=== PATIENT | male | born 1940 | race Caucasian/White ===

== ENCOUNTER 2018-02-04 15:17 | Inpatient (IN) | payer MEDICARE, OTHER ==
[~2018-02-04] VITALS: Ht 188 cm; Wt 100.9 kg
[2018-02-04] MEDS ORDERED: HYDROmorphone inj. 0.5 MG/0.5 ML DISP.SYRIN IV ONE ×2 (15:45→18:10)
[2018-02-04] MEDS ORDERED: HYDROmorphone 1 mg/ml syringe IV ONE ×2 (15:50→18:10)
[2018-02-04] MEDS ORDERED: HYDROmorphone/NS 1 mg/ml CADD 50 ML IV SCH (16:30)
[2018-02-04] MEDS ORDERED: acetaminophen 325mg tablet PO PRN (16:30)
[2018-02-04] MEDS ORDERED: CADD PCA waste documentation MC PRN (16:30)
[2018-02-04] MEDS ORDERED: naloxone 0.4 mg/ml inj IV PRN (16:30)
[2018-02-04] MEDS ORDERED: ondansetron/PF 4mg/2ml inj IV PRN (17:20)
[2018-02-04 17:29] LABS: BASOPHILS % (AUTO) 0.2 % (0-1); EOSINOPHILS # (AUTO) 0.2 X10'3 (0-0.9); EOSINOPHILS % (AUTO) 2.2 % (0-6); HEMATOCRIT 30.8 % (42.0-52.0); HEMOGLOBIN 10.5 g/dl (14.0-17.9); LYMPHOCYTES # (AUTO) 0.4 X10'3 (1.1-4.8); LYMPHOCYTES % (AUTO) 5.4 % (21-51); MEAN CORPUSCULAR HEMOGLOBIN 33.2 PG (27.0-31.0); MEAN CORPUSCULAR VOLUME 97.6 FL (78-98); MEAN PLATELET VOLUME 6.9 FL (7.4-10.4); MONOCYTES # (AUTO) 0.8 X10'3 (0-0.9); MONOCYTES % (AUTO) 10.8 % (2-12); NEUTROPHILS # (AUTO) 5.9 X10'3 (1.8-7.7); NEUTROPHILS % (AUTO) 81.4 % (42-75); PLATELET COUNT 129 X10'3 (140-440); RED BLOOD COUNT 3.15 X10'6 (4.70-6.10); RED CELL DISTRIBUTION WIDTH 15.8 % (11.5-14.5); WHITE BLOOD COUNT 7.3 X10'3 (4.5-11.0)
[2018-02-04 17:38] LABS: INR 1.1 INR; PARTIAL THROMBOPLASTIN TIME 28 SECONDS (22-32); PROTHROMBIN TIME 11.2 SECONDS (9.0-12.0)
[2018-02-04 17:41] LABS: ALANINE AMINOTRANSFERASE 30 U/L (12-78); ALBUMIN 3.2 G/DL (3.4-5.0); ALBUMIN/GLOBULIN RATIO 0.7 (1.1-1.5); ALKALINE PHOSPHATASE 113 IU/L (46-116); ANION GAP 10 (8-16); ASPARTATE AMINO TRANSFERASE 25 U/L (10-37); BILIRUBIN,TOTAL 0.8 MG/DL (0.1-1.0); BLOOD UREA NITROGEN 58 MG/DL (7-18); BUN/CREATININE RATIO 7.8 (5.4-32.0); CALCIUM 8.7 MG/DL (8.5-10.1); CHLORIDE 102 MMOL/L (99-107); CREATININE 7.45 MG/DL (0.60-1.10); GLUCOSE 94 MG/DL (70-104); MAGNESIUM 2.7 MG/DL (1.5-2.4); PHOSPHORUS 5.1 MG/DL (2.3-4.5); POTASSIUM 5.4 MMOL/L (3.5-5.1); SODIUM 139 MMOL/L (135-145); TOTAL CARBON DIOXIDE 27.2 MMOL/L (24-32); TOTAL PROTEIN 7.5 G/DL (6.4-8.2); eGFR 7 ML/MIN
[2018-02-04 18:47] VITALS: BP 162/81
[2018-02-04] MEDS: HYDROmorphone/NS 1 mg/ml CADD 50 ML IV SCH ×4 (19:00→23:00)
[2018-02-04] MEDS: baclofen 10mg tablet PO PRN (19:46)
[2018-02-04] MEDS: docusate sod 100mg capsule PO SCH (19:47)
[2018-02-04] MEDS ORDERED: FURO-149 PO (20:13)
[2018-02-04] MEDS ORDERED: FOLI0.8T7 PO (20:13)
[2018-02-04] MEDS ORDERED: PHO667C PO (20:13)
[2018-02-04] MEDS ORDERED: AMLO1CAP19 PO (20:13)
[2018-02-04] MEDS ORDERED: HYDR-565 PO (20:13)
[2018-02-04] MEDS ORDERED: furosemide 40mg tablet PO ONE (20:20)
[2018-02-04] MEDS ORDERED: heparin 1,000 units/ml 10ml inj IV ONE (20:25)
[2018-02-04] MEDS ORDERED: normal saline 1000ml 250 ML IV PRN (20:25)
[2018-02-04] MEDS ORDERED: LIDOcaine 1% (10mg/ml) 2ml vial SQ ONE (20:25)
[2018-02-04] MEDS ORDERED: epoetin 20,000 units/ml inj IV ONE (20:25)
[2018-02-04 22:00] VITALS: BP 150/74
[2018-02-05] VITALS (20 sets, daily range): BP systolic 97–150; BP diastolic 51–82
[2018-02-05] MEDS: HYDROmorphone/NS 1 mg/ml CADD 50 ML IV SCH ×7 (00:57→13:00)
[2018-02-05 07:08] LABS: BASOPHILS % (AUTO) 0.4 % (0-1); EOSINOPHILS # (AUTO) 0.3 X10'3 (0-0.9); EOSINOPHILS % (AUTO) 4.6 % (0-6); HEMATOCRIT 29.2 % (42.0-52.0); LYMPHOCYTES # (AUTO) 0.5 X10'3 (1.1-4.8); LYMPHOCYTES % (AUTO) 8.2 % (21-51); MEAN CORPUSCULAR HEMOGLOBIN 33.2 PG (27.0-31.0); MEAN CORPUSCULAR HGB CONC 34.2 % (33.0-36.5); MEAN CORPUSCULAR VOLUME 97.2 FL (78-98); MEAN PLATELET VOLUME 6.4 FL (7.4-10.4); MONOCYTES # (AUTO) 0.8 X10'3 (0-0.9); MONOCYTES % (AUTO) 13.4 % (2-12); NEUTROPHILS # (AUTO) 4.2 X10'3 (1.8-7.7); NEUTROPHILS % (AUTO) 73.4 % (42-75); PLATELET COUNT 126 X10'3 (140-440); RED BLOOD COUNT 3.01 X10'6 (4.70-6.10); RED CELL DISTRIBUTION WIDTH 16.1 % (11.5-14.5); WHITE BLOOD COUNT 5.7 X10'3 (4.5-11.0)
[2018-02-05] MEDS: docusate sod 100mg capsule PO SCH (07:14)
[2018-02-05] MEDS: sevelamer carbonate 800mg tablet PO SCH ×3 (07:14→17:24)
[2018-02-05 07:29] LABS: ALANINE AMINOTRANSFERASE 26 U/L (12-78); ALBUMIN/GLOBULIN RATIO 0.7 (1.1-1.5); ALKALINE PHOSPHATASE 108 IU/L (46-116); ANION GAP 8 (8-16); ASPARTATE AMINO TRANSFERASE 16 U/L (10-37); BLOOD UREA NITROGEN 31 MG/DL (7-18); BUN/CREATININE RATIO 6.1 (5.4-32.0); CALCIUM 8.4 MG/DL (8.5-10.1); CHLORIDE 101 MMOL/L (99-107); CREATININE 5.09 MG/DL (0.60-1.10); GLUCOSE 96 MG/DL (70-104); MAGNESIUM 2.4 MG/DL (1.5-2.4); PHOSPHORUS 4.4 MG/DL (2.3-4.5); POTASSIUM 4.6 MMOL/L (3.5-5.1); SODIUM 138 MMOL/L (135-145); TOTAL CARBON DIOXIDE 28.8 MMOL/L (24-32); TOTAL PROTEIN 7.2 G/DL (6.4-8.2); eGFR 11 ML/MIN
[2018-02-05] MEDS ORDERED: fentaNYL/PF 50MCG/1 ML 2ML syringe ONE (08:16)
[2018-02-05] MEDS ORDERED: midazolam 2 mg/2 ml injection ONE (08:17)
[2018-02-05 08:29] LABS: INR 1.1 INR; PROTHROMBIN TIME 11.4 SECONDS (9.0-12.0)
[2018-02-05] MEDS ORDERED: proCHLORperazine 10 MG/2 ml inj IV PRN (09:15)
[2018-02-05] MEDS ORDERED: meperidine/PF 25mg/ml syringe IV PRN ×3 (09:15)
[2018-02-05] MEDS ORDERED: morphine 4 MG/ML inj SYRINge IV PRN ×2 (09:15)
[2018-02-05] MEDS ORDERED: ringers solution, lacted 1,000 ML IV SCH ×2 (09:15)
[2018-02-05] MEDS ORDERED: ondansetron/PF 4mg/2ml inj IV PRN (09:15)
[2018-02-05] MEDS ORDERED: propofol inj 20 ML IV ONE (09:54)
[2018-02-05] MEDS ORDERED: acetaminophen 325mg tablet PO PRN (10:05)
[2018-02-05] MEDS ORDERED: diphenhydrAMINE 25mg capsule PO PRN ×2 (10:05)
[2018-02-05] MEDS ORDERED: magnesium hydroxide 30ml (MOM) UD suspension PO PRN (10:05)
[2018-02-05] MEDS ORDERED: bisacodyl 10mg suppository rectal RC PRN (10:05)
[2018-02-05] MEDS ORDERED: morphine 2 MG/ML inj. syringe IV PRN (13:40)
[2018-02-05] MEDS: HYDROcodone/acetaminophen 10/325mg tab PO PRN ×3 (13:52→22:14)
[2018-02-05] MEDS: ceFAZolin 1GM/D5W- ADD-VANTAGE 50 ML IV SCH ×2 (15:39→23:41)
[2018-02-05] MEDS: calcium acetate 667mg (PhosLO) capsule PO SCH (17:24)
[2018-02-05] MEDS: furosemide 40mg tablet PO SCH (20:47)
[2018-02-05] MEDS: baclofen 10mg tablet PO PRN (20:50)
[2018-02-05] MEDS: sennosides 8.6mg tablet PO SCH (21:00)
[2018-02-06] VITALS (7 sets, daily range): BP systolic 115–160; BP diastolic 55–80
[2018-02-06] MEDS: HYDROcodone/acetaminophen 10/325mg tab PO PRN ×4 (03:45→20:30)
[2018-02-06] MEDS: baclofen 10mg tablet PO PRN ×2 (04:59→12:43)
[2018-02-06 05:27] LABS: INR 1.1 INR; PROTHROMBIN TIME 11.7 SECONDS (9.0-12.0)
[2018-02-06 05:36] LABS: ALANINE AMINOTRANSFERASE 21 U/L (12-78); ALBUMIN 2.8 G/DL (3.4-5.0); ALBUMIN/GLOBULIN RATIO 0.7 (1.1-1.5); ALKALINE PHOSPHATASE 92 IU/L (46-116); ANION GAP 7 (8-16); ASPARTATE AMINO TRANSFERASE 17 U/L (10-37); BILIRUBIN,TOTAL 0.7 MG/DL (0.1-1.0); BLOOD UREA NITROGEN 48 MG/DL (7-18); CALCIUM 7.8 MG/DL (8.5-10.1); CHLORIDE 99 MMOL/L (99-107); CREATININE 6.83 MG/DL (0.60-1.10); GLUCOSE 100 MG/DL (70-104); MAGNESIUM 2.5 MG/DL (1.5-2.4); POTASSIUM 5.2 MMOL/L (3.5-5.1); SODIUM 135 MMOL/L (135-145); TOTAL CARBON DIOXIDE 28.6 MMOL/L (24-32); TOTAL PROTEIN 6.8 G/DL (6.4-8.2); eGFR 8 ML/MIN
[2018-02-06 05:37] LABS: BASOPHILS % (AUTO) 0.5 % (0-1); EOSINOPHILS # (AUTO) 0.5 X10'3 (0-0.9); EOSINOPHILS % (AUTO) 7.2 % (0-6); HEMATOCRIT 26.2 % (42.0-52.0); LYMPHOCYTES # (AUTO) 0.6 X10'3 (1.1-4.8); MEAN CORPUSCULAR HEMOGLOBIN 33.2 PG (27.0-31.0); MEAN CORPUSCULAR HGB CONC 34.2 % (33.0-36.5); MEAN PLATELET VOLUME 6.9 FL (7.4-10.4); MONOCYTES # (AUTO) 1.1 X10'3 (0-0.9); MONOCYTES % (AUTO) 15.6 % (2-12); NEUTROPHILS # (AUTO) 4.7 X10'3 (1.8-7.7); NEUTROPHILS % (AUTO) 67.7 % (42-75); PLATELET COUNT 121 X10'3 (140-440); RED CELL DISTRIBUTION WIDTH 15.8 % (11.5-14.5); WHITE BLOOD COUNT 6.9 X10'3 (4.5-11.0)
[2018-02-06] MEDS: folic acid/vitamin B complex w/vitamin C 0.8mg tablet PO SCH (07:41)
[2018-02-06] MEDS: furosemide 40mg tablet PO SCH ×3 (07:41→20:30)
[2018-02-06] MEDS: calcium acetate 667mg (PhosLO) capsule PO SCH ×3 (07:41→17:05)
[2018-02-06] MEDS: lisinopril 10 MG tablet PO SCH (07:42)
[2018-02-06] MEDS: amLODIPine 2.5mg tablet PO SCH (07:42)
[2018-02-06] MEDS: sevelamer carbonate 800mg tablet PO SCH ×3 (07:47→17:05)
[2018-02-06] MEDS ORDERED: enoxaparin 40mg/0.4ml syringe SQ SCH (08:00)
[2018-02-06] MEDS: sennosides 8.6mg tablet PO SCH (20:30)
[2018-02-07] VITALS (7 sets, daily range): BP systolic 126–156; BP diastolic 67–102
[2018-02-07 04:52] LABS: BASOPHILS % (AUTO) 0.1 % (0-1); EOSINOPHILS # (AUTO) 0.6 X10'3 (0-0.9); EOSINOPHILS % (AUTO) 6.9 % (0-6); HEMATOCRIT 26.7 % (42.0-52.0); HEMOGLOBIN 9.1 g/dl (14.0-17.9); LYMPHOCYTES # (AUTO) 0.6 X10'3 (1.1-4.8); LYMPHOCYTES % (AUTO) 7.2 % (21-51); MEAN CORPUSCULAR HGB CONC 33.9 % (33.0-36.5); MEAN CORPUSCULAR VOLUME 97.1 FL (78-98); MEAN PLATELET VOLUME 6.9 FL (7.4-10.4); MONOCYTES # (AUTO) 1.4 X10'3 (0-0.9); MONOCYTES % (AUTO) 17.4 % (2-12); NEUTROPHILS # (AUTO) 5.5 X10'3 (1.8-7.7); NEUTROPHILS % (AUTO) 68.4 % (42-75); PLATELET COUNT 128 X10'3 (140-440); RED BLOOD COUNT 2.75 X10'6 (4.70-6.10); RED CELL DISTRIBUTION WIDTH 15.4 % (11.5-14.5); WHITE BLOOD COUNT 8.1 X10'3 (4.5-11.0)
[2018-02-07 05:23] LABS: INR 1.1 INR; PROTHROMBIN TIME 11.1 SECONDS (9.0-12.0)
[2018-02-07 05:38] LABS: ALANINE AMINOTRANSFERASE 6 U/L (12-78); ALBUMIN 2.7 G/DL (3.4-5.0); ALBUMIN/GLOBULIN RATIO 0.6 (1.1-1.5); ALKALINE PHOSPHATASE 97 IU/L (46-116); ANION GAP 10 (8-16); ASPARTATE AMINO TRANSFERASE 18 U/L (10-37); BILIRUBIN,TOTAL 0.6 MG/DL (0.1-1.0); BLOOD UREA NITROGEN 63 MG/DL (7-18); BUN/CREATININE RATIO 7.7 (5.4-32.0); CALCIUM 8.9 MG/DL (8.5-10.1); CHLORIDE 96 MMOL/L (99-107); CREATININE 8.19 MG/DL (0.60-1.10); GLUCOSE 104 MG/DL (70-104); MAGNESIUM 2.5 MG/DL (1.5-2.4); PHOSPHORUS 6.5 MG/DL (2.3-4.5); POTASSIUM 4.8 MMOL/L (3.5-5.1); SODIUM 133 MMOL/L (135-145); TOTAL CARBON DIOXIDE 27.5 MMOL/L (24-32); eGFR 6 ML/MIN
[2018-02-07] MEDS: HYDROcodone/acetaminophen 10/325mg tab PO PRN (06:51)
[2018-02-07] MEDS: ondansetron/PF 4mg/2ml inj IV PRN ×2 (06:56→14:34)
[2018-02-07] MEDS ORDERED: epoetin 20,000 units/ml inj IV ONE (08:00)
[2018-02-07] MEDS ORDERED: heparin 1,000unit/ml 10ml vial 10 ML IV ONE (08:00)
[2018-02-07] MEDS ORDERED: LIDOcaine 1% (10mg/ml) 2ml vial SQ ONE (08:00)
[2018-02-07] MEDS: sevelamer carbonate 800mg tablet PO SCH ×3 (08:30→17:30)
[2018-02-07] MEDS: furosemide 40mg tablet PO SCH ×3 (08:52→20:56)
[2018-02-07] MEDS: lisinopril 10 MG tablet PO SCH (08:52)
[2018-02-07] MEDS: calcium acetate 667mg (PhosLO) capsule PO SCH ×3 (08:52→18:00)
[2018-02-07] MEDS: folic acid/vitamin B complex w/vitamin C 0.8mg tablet PO SCH (08:52)
[2018-02-07] MEDS: amLODIPine 2.5mg tablet PO SCH (08:52)
[2018-02-07] MEDS: enoxaparin 30mg/0.3ml syringe SQ SCH (08:53)
[2018-02-07] MEDS ORDERED: proCHLORperazine 10 MG/2 ml inj IV PRN (17:15)
[2018-02-07] MEDS: sennosides 8.6mg tablet PO SCH (20:55)
[2018-02-08 05:55] LABS: BASOPHILS % (AUTO) 0.3 % (0-1); EOSINOPHILS # (AUTO) 0.1 X10'3 (0-0.9); EOSINOPHILS % (AUTO) 2.2 % (0-6); HEMATOCRIT 25.3 % (42.0-52.0); HEMOGLOBIN 8.7 g/dl (14.0-17.9); LYMPHOCYTES # (AUTO) 0.5 X10'3 (1.1-4.8); LYMPHOCYTES % (AUTO) 7.2 % (21-51); MEAN CORPUSCULAR HEMOGLOBIN 33.1 PG (27.0-31.0); MEAN CORPUSCULAR HGB CONC 34.4 % (33.0-36.5); MEAN CORPUSCULAR VOLUME 96.4 FL (78-98); MEAN PLATELET VOLUME 7.1 FL (7.4-10.4); MONOCYTES # (AUTO) 0.9 X10'3 (0-0.9); MONOCYTES % (AUTO) 13.1 % (2-12); NEUTROPHILS # (AUTO) 5.2 X10'3 (1.8-7.7); NEUTROPHILS % (AUTO) 77.2 % (42-75); PLATELET COUNT 149 X10'3 (140-440); RED BLOOD COUNT 2.62 X10'6 (4.70-6.10); RED CELL DISTRIBUTION WIDTH 15.8 % (11.5-14.5); WHITE BLOOD COUNT 6.8 X10'3 (4.5-11.0)
[2018-02-08 06:00] VITALS: BP 127/60
[2018-02-08 06:05] LABS: INR 1.1 INR; PROTHROMBIN TIME 11.1 SECONDS (9.0-12.0)
[2018-02-08 06:14] LABS: ALANINE AMINOTRANSFERASE 10 U/L (12-78); ALBUMIN 2.5 G/DL (3.4-5.0); ALBUMIN/GLOBULIN RATIO 0.6 (1.1-1.5); ALKALINE PHOSPHATASE 85 IU/L (46-116); ANION GAP 9 (8-16); ASPARTATE AMINO TRANSFERASE 16 U/L (10-37); BILIRUBIN,TOTAL 0.6 MG/DL (0.1-1.0); BLOOD UREA NITROGEN 43 MG/DL (7-18); CALCIUM 8.4 MG/DL (8.5-10.1); CHLORIDE 99 MMOL/L (99-107); CREATININE 6.11 MG/DL (0.60-1.10); GLUCOSE 91 MG/DL (70-104); MAGNESIUM 2.3 MG/DL (1.5-2.4); PHOSPHORUS 6.4 MG/DL (2.3-4.5); POTASSIUM 4.8 MMOL/L (3.5-5.1); SODIUM 137 MMOL/L (135-145); TOTAL CARBON DIOXIDE 28.8 MMOL/L (24-32); TOTAL PROTEIN 6.7 G/DL (6.4-8.2); eGFR 9 ML/MIN
[2018-02-08] MEDS: lisinopril 10 MG tablet PO SCH (07:58)
[2018-02-08] MEDS: furosemide 40mg tablet PO SCH ×3 (07:58→21:00)
[2018-02-08] MEDS: amLODIPine 2.5mg tablet PO SCH (07:58)
[2018-02-08] MEDS: folic acid/vitamin B complex w/vitamin C 0.8mg tablet PO SCH (07:58)
[2018-02-08] MEDS: sevelamer carbonate 800mg tablet PO SCH ×3 (07:59→17:20)
[2018-02-08] MEDS: HYDROcodone/acetaminophen 10/325mg tab PO PRN ×3 (07:59→17:21)
[2018-02-08] MEDS: calcium acetate 667mg (PhosLO) capsule PO SCH ×3 (08:00→17:20)
[2018-02-08] MEDS: enoxaparin 30mg/0.3ml syringe SQ SCH (08:00)
[2018-02-08 10:00] VITALS: BP 141/77
[2018-02-08] MEDS: lactulose 20gm/30ml cup PO PRN ×2 (13:01→21:34)
[2018-02-08 18:00] VITALS: BP 122/69
[2018-02-08] MEDS: sennosides 8.6mg tablet PO SCH (21:34)
[2018-02-08 22:00] VITALS: BP 134/65
[2018-02-09] MEDS: HYDROcodone/acetaminophen 10/325mg tab PO PRN ×4 (04:53→13:16)
[2018-02-09 06:00] VITALS: BP 160/78
[2018-02-09 06:05] LABS: BASOPHILS % (AUTO) 0.2 % (0-1); EOSINOPHILS # (AUTO) 0.4 X10'3 (0-0.9); EOSINOPHILS % (AUTO) 6.3 % (0-6); HEMATOCRIT 25.3 % (42.0-52.0); HEMOGLOBIN 8.8 g/dl (14.0-17.9); LYMPHOCYTES # (AUTO) 0.5 X10'3 (1.1-4.8); LYMPHOCYTES % (AUTO) 7.3 % (21-51); MEAN CORPUSCULAR HEMOGLOBIN 33.6 PG (27.0-31.0); MEAN CORPUSCULAR HGB CONC 34.7 % (33.0-36.5); MEAN CORPUSCULAR VOLUME 96.6 FL (78-98); MEAN PLATELET VOLUME 6.9 FL (7.4-10.4); MONOCYTES # (AUTO) 0.9 X10'3 (0-0.9); MONOCYTES % (AUTO) 13.3 % (2-12); NEUTROPHILS # (AUTO) 4.8 X10'3 (1.8-7.7); NEUTROPHILS % (AUTO) 72.9 % (42-75); PLATELET COUNT 168 X10'3 (140-440); RED BLOOD COUNT 2.62 X10'6 (4.70-6.10); RED CELL DISTRIBUTION WIDTH 16.1 % (11.5-14.5); WHITE BLOOD COUNT 6.6 X10'3 (4.5-11.0)
[2018-02-09 06:12] LABS: INR 1.1 INR
[2018-02-09 06:39] LABS: ALANINE AMINOTRANSFERASE 8 U/L (12-78); ALBUMIN 2.6 G/DL (3.4-5.0); ALBUMIN/GLOBULIN RATIO 0.6 (1.1-1.5); ALKALINE PHOSPHATASE 84 IU/L (46-116); ANION GAP 10 (8-16); ASPARTATE AMINO TRANSFERASE 14 U/L (10-37); BILIRUBIN,TOTAL 0.8 MG/DL (0.1-1.0); BLOOD UREA NITROGEN 60 MG/DL (7-18); BUN/CREATININE RATIO 7.9 (5.4-32.0); CALCIUM 8.4 MG/DL (8.5-10.1); CHLORIDE 93 MMOL/L (99-107); CREATININE 7.63 MG/DL (0.60-1.10); GLUCOSE 91 MG/DL (70-104); MAGNESIUM 2.5 MG/DL (1.5-2.4); PHOSPHORUS 6.2 MG/DL (2.3-4.5); POTASSIUM 4.9 MMOL/L (3.5-5.1); SODIUM 131 MMOL/L (135-145); TOTAL CARBON DIOXIDE 28.4 MMOL/L (24-32); TOTAL PROTEIN 6.9 G/DL (6.4-8.2); eGFR 7 ML/MIN
[2018-02-09] MEDS: calcium acetate 667mg (PhosLO) capsule PO SCH ×2 (07:53→13:13)
[2018-02-09] MEDS: amLODIPine 2.5mg tablet PO SCH (07:53)
[2018-02-09] MEDS: furosemide 40mg tablet PO SCH ×2 (07:53→13:16)
[2018-02-09] MEDS: lisinopril 10 MG tablet PO SCH (07:53)
[2018-02-09] MEDS: folic acid/vitamin B complex w/vitamin C 0.8mg tablet PO SCH (07:53)
[2018-02-09] MEDS: sevelamer carbonate 800mg tablet PO SCH ×2 (07:54→13:13)
[2018-02-09] MEDS: enoxaparin 30mg/0.3ml syringe SQ SCH (07:54)
[2018-02-09] MEDS: lactulose 20gm/30ml cup PO PRN (07:54)
[2018-02-09] MEDS ORDERED: LIDOcaine 1% (10mg/ml) 2ml vial SQ ONE (08:00)
[2018-02-09] MEDS ORDERED: heparin 1,000 units/ml 10ml inj HE ONE ×2 (08:00)
[2018-02-09] MEDS ORDERED: heparin 1,000unit/ml 10ml vial 10 ML IV ONE (08:00)
[2018-02-09] MEDS ORDERED: epoetin 20,000 units/ml inj IV ONE (08:00)
[2018-02-09] MEDS ORDERED: normal saline 1000ml 250 ML IV PRN (08:00)
[2018-02-09 10:00] VITALS: BP 148/71
== END 2018-02-09 16:00 | DRG 480 ==
LOC: ER 15:21 → ED HOLD 16:27 → ORTHO 4S 18:47
PROVIDERS: ADMIT Internal Medicine Critical Care Medicine; ATTEND Orthopaedic Surgery
PROC: 5A1D70Z Performance of Urinary Filtration, Intermittent, Less than 6 Hours Per Day (ICD-10-PCS; 2018-02-04)
PROC: 0QS606Z Reposition Right Upper Femur with Intramedullary Internal Fixation Device, Open Approach (ICD-10-PCS; principal; 2018-02-05 08:11)
PROC: 5A1D70Z Performance of Urinary Filtration, Intermittent, Less than 6 Hours Per Day (ICD-10-PCS; 2018-02-07)
DX: S72.044A Nondisplaced fracture of base of neck of right femur, initial encounter for closed fracture (principal); N18.6 End stage renal disease; I12.0 Hypertensive chronic kidney disease with stage 5 chronic kidney disease or end stage renal disease; W01.0XXA Fall on same level from slipping, tripping and stumbling without subsequent striking against object, initial encounter; K21.9 Gastro-esophageal reflux disease without esophagitis; D64.9 Anemia, unspecified; K59.00 Constipation, unspecified; M54.9 Dorsalgia, unspecified; Z99.2 Dependence on renal dialysis; Y93.89 Activity, other specified; Y92.098 Other place in other non-institutional residence as the place of occurrence of the external cause; Y99.8 Other external cause status; Z79.899 Other long term (current) drug therapy
CPT/HCPCS: 36415; 71045; 72125; 72128; 72131; 73502; 76000; 80053; 83735; 84100; 85025; 85610; 85730; 86885; 86900; 86901; 87070; 90935; 96374; 97110; 97116; 97162; 97530; 99285; A6209; A6212; A6213; A6222; A6223; A6253; A6255; A6258; A6446; A6449; A7000; C1713; G0257; J0690; J0780; J0885; J1170; J1644; J1650; J2250; J2405; J2704; J3010; J3490; J7030; J7120